=== PATIENT | female | born 1990 | race Caucasian/White ===

== ENCOUNTER 2022-11-03 09:07 | Inpatient (IN) | payer OTHER ==
[2022-11-03] MEDS ORDERED: Acetaminophen 500 MG TAB PO PRN (09:09)
[2022-11-03] MEDS ORDERED: Ondansetron PF 4 MG/2 ML Vial IVP PRN ×3 (09:09→20:55)
[2022-11-03] MEDS ORDERED: Promethazine HCl 25 MG/ML VIAL IM PRN ×2 (09:09→10:16)
[2022-11-03] MEDS ORDERED: Carboprost 250 MCG/ML AMP IM PRN (09:09)
[2022-11-03] MEDS ORDERED: Diphenoxylate HCl/Atropine Tablet PO PRN ×2 (09:09)
[2022-11-03] MEDS ORDERED: Misoprostol 200 MCG TAB PR PRN (09:09)
[2022-11-03] MEDS ORDERED: Docusate 100 MG CAP PO PRN (09:09)
[2022-11-03] MEDS ORDERED: Butorphanol Tartrate 1 MG/ML VIAL SLOW IVP PRN (09:09)
[2022-11-03] MEDS ORDERED: Lidocaine 1% (PF) 30 ML VIAL SC PRN (09:09)
[2022-11-03] MEDS ORDERED: HYDROcodone/Acetaminophen 5/325 mg Tablet PO PRN ×3 (09:09→20:55)
[2022-11-03] MEDS ORDERED: hydrALAZINE 20 MG/ML VIAL SLOW IVP PRN ×2 (09:09→20:55)
[2022-11-03] MEDS ORDERED: Ibuprofen 800 MG TAB PO PRN (09:09)
[2022-11-03] MEDS ORDERED: NS w/ Oxytocin 30 units 500 ML IV SCH ×3 (09:15→21:00)
[2022-11-03] MEDS ORDERED: Lactated Ringer's 1,000 ML IV SCH (09:15)
[2022-11-03] MEDS ORDERED: Fentanyl 2 mcg/Bup 0.1% Cadd 100 ML ONE (10:13)
[2022-11-03] MEDS ORDERED: Moisturizing Cream (Eucerin) 113 GM JAR TOP PRN (10:16)
[2022-11-03] MEDS ORDERED: diphenhydrAMINE 50 MG/ML VIAL IVP PRN (10:16)
[2022-11-03] MEDS ORDERED: Naloxone HCl 0.4 mg/ml Vial IVP PRN ×2 (10:16)
[2022-11-03] MEDS ORDERED: Lactated Ringer's 500 ML IV PRN (10:16)
[2022-11-03] MEDS ORDERED: Acetaminophen 325 MG TAB PO PRN (10:16)
[2022-11-03] MEDS ORDERED: ePHEDrine Sulfate 50 MG/10 ML VIAL SLOW IVP PRN (10:16)
[2022-11-03 10:22] LABS: Hemoglobin 10.3 g/dL (12.0-15.5); Mean Corpuscular HGB CONC 35.6 g/dL (32.0-36.0); Mean Corpuscular Hemoglobin 30.7 pg (27.0-33.0); Mean Corpuscular Volume 86.3 fl (81.6-98.3); Mean Platelet Volume 9.6 fl (7.4-10.4); Platelet Count 330 10x3/uL (150-450); RBC Distribution Width 15.7 % (11.5-14.5); Red Blood Cell (RBC) Count 3.35 10x6/uL (3.90-5.03); White Blood Cell (WBC) Count 15.4 10x3/uL (3.5-10.5)
[2022-11-03] MEDS ORDERED: Fentanyl 2 mcg/Bupivacaine 0.1% Cassette 100 ML EPIDURAL SCH (10:30)
[2022-11-03] MEDS ORDERED: Communication Order-Pharmacy FS SCH (10:30)
[2022-11-03 10:50] LABS: Syphilis Antibody Nonreactive (Nonreactive); Syphilis Antibody Index 0.04 S/CO (<1.00 Non-Reactive)
[2022-11-03 10:52] LABS: HBSAg Index 0.18 S/CO (0-0.99); HIV (1/2) Antibody/Antigen Non-Reactive (NonReactive); HIV 1/2 INDEX 0.09 S/CO (<1.00); Hep B Surf Ag Non-Reactive S/CO (NonReactive)
[2022-11-03] MEDS ORDERED: PHENYLEPHRINE-NS 100 MCG/ML 10 ML SYRINGE ONE (11:01)
[2022-11-03] MEDS ORDERED: Fentanyl 100 MCG/2 ML VIAL ONE (19:02)
[2022-11-03] MEDS ORDERED: Varicella virus, LIVE 0.5 ML VIAL SC ONE (20:55)
[2022-11-03] MEDS ORDERED: Benzocaine-Menthol 82.5 ML CAN TOP PRN (20:55)
[2022-11-03] MEDS ORDERED: diphenhydrAMINE 25 MG CAP PO PRN (20:55)
[2022-11-03] MEDS ORDERED: Bisacodyl 10 MG SUPP PR PRN (20:55)
[2022-11-03] MEDS ORDERED: Boostrix 0.5 ML (Tdap) VIAL (>/=7 yrs of age) IM ONE (20:55)
[2022-11-03] MEDS ORDERED: Misoprostol 200 MCG TAB VAG PRN (20:55)
[2022-11-03] MEDS ORDERED: Preparation H Ointment 28 GM TUBE PR PRN (20:55)
[2022-11-03] MEDS ORDERED: Milk Of Magnesia 30 ML UDCUP PO PRN (20:55)
[2022-11-03] MEDS ORDERED: Witch Hazel-Glycerin 1 EACH JAR TOP PRN (20:57)
[2022-11-03] MEDS: Docusate 100 MG CAP PO SCH (23:56)
[2022-11-03] MEDS: Ibuprofen 800 MG TAB PO SCH (23:56)
[2022-11-04] MEDS: HYDROcodone/Acetaminophen 5/325 mg Tablet PO PRN ×2 (02:05→09:14)
[2022-11-04 03:50] LABS: Hemoglobin 10.2 g/dL (12.0-15.5); Mean Corpuscular HGB CONC 34.1 g/dL (32.0-36.0); Mean Corpuscular Hemoglobin 28.6 pg (27.0-33.0); Mean Corpuscular Volume 83.8 fl (81.6-98.3); Mean Platelet Volume 9.2 fl (7.4-10.4); Platelet Count 326 10x3/uL (150-450); Red Blood Cell (RBC) Count 3.57 10x6/uL (3.90-5.03)
[2022-11-04] MEDS: Ibuprofen 800 MG TAB PO SCH ×3 (06:41→21:35)
[2022-11-04] MEDS: Ferrous Sulfate 325 MG TAB PO SCH ×2 (07:39→18:06)
[2022-11-04] MEDS: Docusate 100 MG CAP PO SCH ×2 (09:14→21:36)
[2022-11-04 10:31] VITALS: BMI 38.4
[2022-11-05] MEDS: Ibuprofen 800 MG TAB PO SCH (05:19)
[2022-11-05 08:07] VITALS: BP 111/73; TEMP 97.6
[2022-11-05] MEDS: Ferrous Sulfate 325 MG TAB PO SCH (08:25)
[2022-11-05] MEDS: Docusate 100 MG CAP PO SCH (08:25)
== END 2022-11-05 12:20 | disposition home or self-care (01) | DRG 807 ==
LOC: CSHLD 09:07 → CSHPP 22:45
PROVIDERS: ADMIT Obstetrics & Gynecology; ATTEND Obstetrics & Gynecology
PROC: 10E0XZZ Delivery of Products of Conception, External Approach (ICD-10-PCS; principal; 2022-11-03)
PROC: 0KQM0ZZ Repair Perineum Muscle, Open Approach (ICD-10-PCS; 2022-11-03)
PROC: 10907ZC Drainage of Amniotic Fluid, Therapeutic from Products of Conception, Via Natural or Artificial Opening (ICD-10-PCS; 2022-11-03)
PROC: 3E033VJ Introduction of Other Hormone into Peripheral Vein, Percutaneous Approach (ICD-10-PCS; 2022-11-03)
DX: O99.02 Anemia complicating childbirth (principal); Z37.0 Single live birth; Z3A.39 39 weeks gestation of pregnancy; D64.9 Anemia, unspecified; O70.1 Second degree perineal laceration during delivery; O99.284 Endocrine, nutritional and metabolic diseases complicating childbirth; E28.2 Polycystic ovarian syndrome; Z14.1 Cystic fibrosis carrier; Z88.0 Allergy status to penicillin; Z79.899 Other long term (current) drug therapy
CPT/HCPCS: 51702; 85027; 86780; 86850; 86900; 86901; 87340; 87389; J2405; J3010